=== PATIENT | female | born 1970 | race Caucasian/White ===

== ENCOUNTER 2017-02-10 08:07 | Day surgery (SDC) | payer OTHER, BC ==
[2017-01-25 10:12] VITALS: BMI 29.0
--- NOTE | 2017-01-25 10:46 | PAT Medication Instructions ---
Service Date Jan 25, 2017. Current Home Medication List Albuterol Hfa (Ventolin Hfa), 2-4 PUFFS INH Q6H PRN for SOB/Wheezing Albuterol Sulf (Albuterol Sulfate), 1 DOSE INH DAILY PRN for SOB/Wheezing Azelastine Hcl (Astelin Nasal [place]), 1-2 SPRAYS NA BID PRN for Nasal Congestion Baclofen (Lioresal), 10 MG PO TID PRN for BACK SPASMS Bupropion (Wellbutrin Sr), 150 MG PO QAM Calcium (Calcium), 1 TAB PO QPM Cholecalciferol (Vitamin D3), 2 TAB PO QAM Cyanocobalamin (Vitamin B-12), 1,000 MCG PO QAM Dextromethorphan-Guaifenesin (Mucinex Dm), 1 TAB PO Q12 PRN for Cough Fluticasone Propionate (Nasal) (Allergy Nasal [place] 24 Ho), 2 SPRAYS NA BID Montelukast Sod (Montelukast Sodium), 1 TAB PEG QPM Multivitamin (Multivitamin), 1 TAB PO QPM Oxycodone/Acetaminophen 5MG/325MG (Percocet 5MG/325MG), 1 TABLET PO Q12 PRN for Pain Propranolol (Inderal), 20 MG PO BID Ranitidine (Zantac), 1 TAB PO BID Saline (Saline Nasal [place]), 1 APPLN NA DAILY PRN for DR Sumatriptan Succinate (Sumatriptan Succinate), 1 TAB PO Q2H PRN for Migraine Tapentadol Hcl (Nucynta), 75 MG PO Q4-6HR PRN PRN Topiramate (Topiramate), 1 TAB PO BID Trazodone Hcl (Trazodone), 50 MG PO HS PRN for Sleep Venlafaxine Hcl (Venlafaxine Extended Rel), 37.5 MG PO Q2D Venlafaxine Hcl (Venlafaxine Extended Rel), 75 MG PO Q2D Medication Instructions For Your Scheduled Surgery - Continue as directed: Venlafaxine Hcl (Venlafaxine Extended Rel), 37.5 MG PO Q2D Venlafaxine Hcl (Venlafaxine Extended Rel), 75 MG PO Q2D - Hold the following medications the morning of surgery: Baclofen (Lioresal), 10 MG PO TID PRN for BACK SPASMS Cholecalciferol (Vitamin D3), 2 TAB PO QAM Cyanocobalamin (Vitamin B-12), 1,000 MCG PO QAM Dextromethorphan-Guaifenesin (Mucinex Dm), 1 TAB PO Q12 PRN for Cough - Take the following medications the morning of surgery with a sip of water: Topiramate (Topiramate), 1 TAB PO BID Sumatriptan Succinate (Sumatriptan Succinate), 1 TAB PO Q2H PRN for Migraine ( if needed) Saline (Saline Nasal [place]), 1 APPLN NA DAILY PRN for DR Propranolol (Inderal), 20 MG PO BID Ranitidine (Zantac), 1 TAB PO BID Oxycodone/Acetaminophen 5MG/325MG (Percocet 5MG/325MG), 1 TABLET PO Q12 PRN for Pain (okay to take up to 4 hours to surgery if needed) Tapentadol Hcl (Nucynta), 75 MG PO Q4-6HR PRN PRN(okay to take up to 4 hours to surgery if needed) Fluticasone Propionate (Nasal) (Allergy Nasal [place] 24 Ho), 2 SPRAYS NA BID Bupropion (Wellbutrin Sr), 150 MG PO QAM Albuterol Sulf (Albuterol Sulfate), 1 DOSE INH DAILY PRN for SOB/Wheezing (if needed) Azelastine Hcl (Astelin Nasal [place]), 1-2 SPRAYS NA BID PRN for Nasal Congestion (if needed) Albuterol Hfa (Ventolin Hfa), 2-4 PUFFS INH Q6H PRN for SOB/Wheezing (if needed) - Take the following medications as scheduled the night before surgery: Topiramate (Topiramate), 1 TAB PO BID Trazodone Hcl (Trazodone), 50 MG PO HS PRN for Sleep (if needed) Sumatriptan Succinate (Sumatriptan Succinate), 1 TAB PO Q2H PRN for Migraine ( if needed) Saline (Saline Nasal [place]), 1 APPLN NA DAILY PRN for DR (if needed) Propranolol (Inderal), 20 MG PO BID Ranitidine (Zantac), 1 TAB PO BID Oxycodone/Acetaminophen 5MG/325MG (Percocet 5MG/325MG), 1 TABLET PO Q12 PRN for Pain (if needed) Multivitamin (Multivitamin), 1 TAB PO QPM Montelukast Sod (Montelukast Sodium), 1 TAB PEG QPM Fluticasone Propionate (Nasal) (Allergy Nasal [place] 24 Ho), 2 SPRAYS NA BID Dextromethorphan-Guaifenesin (Mucinex Dm), 1 TAB PO Q12 PRN for Cough (if needed ) Calcium (Calcium), 1 TAB PO QPM Baclofen (Lioresal), 10 MG PO TID PRN for BACK SPASMS (if needed) Albuterol Sulf (Albuterol Sulfate), 1 DOSE INH DAILY PRN for SOB/Wheezing (if needed) Azelastine Hcl (Astelin Nasal [place]), 1-2 SPRAYS NA BID PRN for Nasal Congestion (if needed) Albuterol Hfa (Ventolin Hfa), 2-4 PUFFS INH Q6H PRN for SOB/Wheezing (if needed) Tapentadol Hcl (Nucynta), 75 MG PO Q4-6HR PRN PRN (if needed) If you have any questions please call us at [phone] or [phone] or [phone]
--- NOTE | 2017-01-25 11:19 | DIAGNOSTIC IMAGING REPORT ---
CHEST PREADMISSION(PA/LAT) CLINICAL HISTORY: Preoperative chest COMPARISON STUDY: 08/14/2013 FINDINGS: The cardiac and mediastinal contours are normal. There is no evidence of focal pulmonary consolidation. There is no evidence of failure. No pleural effusions are visualized.[ There are postsurgical changes within the cervical spine. IMPRESSION: No active disease in the chest. Electronically signed by: Juvencio Dixon M.D. 01/25/2017 11:18 AM Dictated Date/Time: 01/25/2017 11:17 AM
[2017-01-25 11:56] LABS: BASO % 0.8 %; BASO ABS # 0.06 K/uL (0-0.2); COMPLETE YES; EOS % 4.3 %; HEMATOCRIT 42.4 % (37-47); IG% 0.1 %; LYMPH % 24.8 %; LYMPH ABS # 1.89 K/uL (1.2-3.4); MEAN CELL VOLUME 93.2 fL (80-100); MEAN CORPUSCULAR HEMOGLOBIN 32.1 pg (25-34); MEAN CORPUSCULAR HGB CONC 34.4 g/dl (32-36); MEAN PLATELET VOLUME 10.4 fL (7.4-10.4); MONO % 12.5 %; NEUT % 57.5 %; PLATELET COUNT 308 K/uL (130-400); RED BLOOD COUNT 4.55 M/uL (4.2-5.4); WHITE BLOOD COUNT 7.61 K/uL (4.8-10.8)
[2017-01-25 12:06] LABS: URINE APPEARANCE CLOUDY (CLEAR); URINE COLOR DK YELLOW; URINE EPITHELIAL CELL AUTO >30 /lpf (0-5); URINE NITRITE NEG (NEG); URINE PH 6.5 (4.5-7.5); URINE SPECIFIC GRAVITY 1.025 (1.000-1.030); UROBILINOGEN NEG (NEG); ZZUR CULT IF INDIC CLEAN CATCH YES
[2017-01-25 12:29] LABS: BUN/CREATININE RATIO 9.5 (10-20); CALCIUM 8.5 mg/dl (8.5-10.1); CREATININE 1.09 mg/dl (0.60-1.20); POTASSIUM 4.2 mmol/L (3.5-5.1)
[2017-01-25 12:37] LABS: MANUAL MICROSCOPIC REQUIRED? NO; REVIEW REQ? YES; URINE BILIRUBIN NEG (NEG)
[~2017-02-10] VITALS: Ht 167.6 cm; Wt 82.7 kg
[~2017-02-10 08:07] MED LIST: ASTN; BACL10TA PO; BUPR-79 PO; CALC600T37 PO; CEFAZOLIN 2000MG IV PUSH 10 ML IV SCH; CHOL1000 PO; CYAN10005 PO; DEXT30TA7 PO; FLUT50SP45; IMT50 PO; LACTATED RINGER'S 1000ML 1,000 ML IV SCH; MULT-506 PO; OXYC-57 PO; PROP20TA67 PO; PRVIN5 INH; SALI1SPR3; SNG10 PO; TAPE75TA2 PO; TPM100 PO; TRAZ50TA35 PO; VENL37.593 PO; VENL75CA73 PO; VNTHFA/IN INH; ZNTT/150 PO
[2017-02-10 08:44] VITALS: BP 98/62; PULSE 63; TEMP 36.7; O2SAT 97; Ht 167.6 cm; Wt 82.7 kg
[2017-02-10] MEDS ORDERED: HYDROmorphone INJ 1 MG/ML SYR IV PRN ×3 (09:00→12:00)
[2017-02-10] MEDS ORDERED: ATROPINE SULFATE 0.1 MG/ML 5ML SYR IV PRN (09:00)
[2017-02-10] MEDS ORDERED: ONDANSETRON INJ 2 MG/ML 2 ML VIAL IV PRN (09:00)
[2017-02-10] MEDS ORDERED: EpHEDrine SULFATE INJ 50 MG/ML AMP IV PRN (09:00)
[2017-02-10] MEDS ORDERED: LABETALOL HCL IV 5 MG/ML 20ML IV PRN (09:00)
[2017-02-10] MEDS ORDERED: MEPERIDINE HCL 25 MG/ML CARP IV PRN (09:00)
--- NOTE | 2017-02-10 09:02 | History & Physical Bridge Note ---
H&P Re-Evaluation Bridge Note: I have examined the patient, reviewed the History & Physical and in the interval since the performance of the History & Physical I have noted the following changes of clinical significance: No changes noted
--- NOTE | 2017-02-10 09:03 | History and Physical ---
History & Physical Date Feb 10, 2017. Chief Complaint Left SI joint pain History of Present Illness The patient is a 46 year old female with complaints of left SI joint pain Additional History Hepatic Disease: No Endocrine Disorder: No Kidney Disease: No Hypertension: Yes Heart Disease: No Bleeding Tendencies: No Infectious Diseases: No Allergies Coded Allergies: CI Pigment Blue 63 (Verified Allergy, Unknown, WOBBLY, SHAKY, INSOMNIA, ) Duloxetine (Verified Allergy, Unknown, WOBBLY, SHAKY, INSOMNIA, 02/10/17) Gabapentin (Verified Allergy, Unknown, HALLUCINATIONS, 02/10/17) Home Medications Scheduled Bupropion (Wellbutrin Sr), 150 MG PO QAM Calcium (Calcium), 1 TAB PO QPM Cholecalciferol (Vitamin D3), 2 TAB PO QAM Cyanocobalamin (Vitamin B-12), 1,000 MCG PO QAM Fluticasone Propionate (Nasal) (Allergy Nasal [place] 24 Ho), 2 SPRAYS NA BID Montelukast Sod (Montelukast Sodium), 1 TAB PO QPM Multivitamin (Multivitamin), 1 TAB PO QPM Propranolol (Inderal), 20 MG PO BID Ranitidine (Zantac), 1 TAB PO BID Topiramate (Topiramate), 1 TAB PO BID Venlafaxine Hcl (Venlafaxine Extended Rel), 37.5 MG PO Q2D Scheduled PRN Albuterol Hfa (Ventolin Hfa), 2-4 PUFFS INH Q6H PRN for SOB/Wheezing Albuterol Sulf (Albuterol Sulfate), 1 DOSE INH DAILY PRN for SOB/Wheezing Azelastine Hcl (Astelin Nasal [place]), 1-2 SPRAYS NA BID PRN for Nasal Congestion Baclofen (Lioresal), 10 MG PO TID PRN for BACK SPASMS Dextromethorphan-Guaifenesin (Mucinex Dm), 1 TAB PO Q12 PRN for Cough Oxycodone/Acetaminophen 5MG/325MG (Percocet 5MG/325MG), 1 TABLET PO Q12 PRN for Pain Saline (Saline Nasal [place]), 1 APPLN NA DAILY PRN for DR Sumatriptan Succinate (Sumatriptan Succinate), 1 TAB PO Q2H PRN for Migraine Tapentadol Hcl (Nucynta), 75 MG PO Q4-6HR PRN PRN Trazodone Hcl (Trazodone), 50 MG PO HS PRN for Sleep Physical Examination Skin: warm/dry, no rash Eyes: normal inspection, EOMI, sclerae normal ENT: normal ENT inspection, pharynx normal Head: normocephalic, atraumatic Neck: supple, no adenopathy, trachea midline Respiratory/Chest: lungs clear, normal breath sounds, no respiratory distress Cardiovascular: regular rate, rhythm, no edema, no murmur Abdomen / GI: normal bowel sounds, non tender Back: normal inspection Extremities: normal inspection, normal range of motion Neurologic/Psych: no motor/sensory deficits, alert, normal reflexes, oriented x 3 Diagnosis Sacroiliitis Plan of Treatment Left SI joint fusion
[2017-02-10] MEDS ORDERED: FENTANYL CITRATE INJ 50 MCG/1 ML 2 ML VIAL ONE ×2 (09:05→10:26)
[2017-02-10] MEDS ORDERED: MIDAZOLAM HCL 1 MG/ML 2ML VIAL ONE (09:05)
[2017-02-10] MEDS ORDERED: BACITRACIN 50000 UNIT VIAL ONE (09:29)
[2017-02-10] MEDS ORDERED: BUPIVACAINE/EPINEPHRINE 0.5% MPF 1:200,000 30 ML VIAL ONE (09:29)
[2017-02-10] MEDS ORDERED: HYDROmorphone INJ 2 MG/ML SYR/VIAL ONE ×2 (10:27→10:56)
[2017-02-10] MEDS ORDERED: PROPOFOL IV EMULSION 10 MG/ML 20 ML VIAL IV ONE (10:44)
[2017-02-10] MEDS ORDERED: ONDANSETRON INJ 2 MG/ML 2 ML VIAL ONE ×2 (10:44→11:50)
[2017-02-10] MEDS ORDERED: LIDOCAINE HCL 2% 2 ML VIAL (20MG/ML) ONE (10:44)
[2017-02-10] MEDS ORDERED: DEXAMETHASONE SOD INJ 4 MG/ML VIAL ONE (10:44)
[2017-02-10] MEDS ORDERED: ROCURONIUM BROMIDE 10 MG/ML 5 ML VIAL IV ONE (10:44)
[2017-02-10] MEDS ORDERED: OXYC-57 PO (10:50)
--- NOTE | 2017-02-10 10:52 | Discharge Instructions ---
Discharge Instructions Date of Service Feb 10, 2017. Admission Reason for Admission: Si Joint Dysfunction Discharge Discharge Diagnosis / Problem: left sacroiliitis Discharge Goals Goal(s): Decrease discomfort Activity Recommendations Activity Limitations: as noted below Lifting Limitations: no more than 10 pounds Shower/Bathe: may shower/bathe in 3 days Weightbearing Status: Left toe touch Toe-touch weight-bearing left lower extremity until follow-up in the office in 2 weeks. . Current Hospital Diet Patient's current hospital diet: Discharge Diet Recommended Diet: Regular Diet Procedures Procedures Performed: Left Sacroiliac Joint Fusion Pending Studies Studies pending at discharge: no Medical Emergencies . Who to Call and When: Medical Emergencies: If at any time you feel your situation is an emergency, please call 911 immediately. . Non-Emergent Contact Non-Emergency issues call your: Primary Care Provider . "Provider Documentation" section prepared by Issa Alanis. . VTE Core Measure Inpt VTE Proph given/why not?: Estelita oCoper, SCD's
--- NOTE | 2017-02-10 10:59 | DIAGNOSTIC IMAGING REPORT ---
SACRUM CLINICAL HISTORY: LT SACROILIAC JOINT FUSION TECHNIQUE: Image intensifier COMPARISON STUDY: FINDINGS: Image intensifier was used for sacroiliac fusion-type procedure IMPRESSION: Image intensifier was used for sacroiliac fusion-type procedure The above report was generated using voice recognition software. It may contain grammatical, syntax or spelling errors. Electronically signed by: Haim Bergeron M.D. 02/10/2017 10:58 AM Dictated Date/Time: 02/10/2017 10:57 AM
[2017-02-10] MEDS ORDERED: ACETAMINOPHEN 325 MG TAB PO PRN (11:00)
[2017-02-10] MEDS ORDERED: KETOROLAC TROMETHAMINE 30 MG/ML VIAL IV. PRN (11:00)
[2017-02-10] MEDS ORDERED: OXYCODONE HCL IR 5 MG TAB (IMMEDIATE RELEASE) PO PRN (11:00)
--- NOTE | 2017-02-10 11:31 | [facility] Operative Report ---
Operative Report Operative Date Feb 10, 2017. Pre-Operative Diagnosis Sacroiliitis Post-Operative Diagnosis same as pre-operative Procedure(s) Performed Left Sacroiliac Joint Fusion Surgeon Dr. Issa Alanis Etl Application Developer Surgeon(s) TOR Brand Estimated Blood Loss 50ml Findings None Specimens none per surgeon Description of Procedure Patient was met with preoperatively case discussed all questions addressed. After informed consent was obtained she was taken to the operative suite underwent intubation placed in a prone position on the Brock table with chest pads and hip bolsters. The left upper buttock was prepped and draped in normal sterile fashion. With the assistance of fluoroscopy we identified the left SI joint in AP lateral planes. A proximally 3 cm incision was made over the left upper buttock along the sacral slope. I then placed a guidewire across to the proximal portion of the left SI joint. We verified position appropriate position in all planes. We then drilled over the guidewire to a 10 mm screw. A 45 mm RETANA-coated slotted screw filled with DBM and locally harvested morcellized autograft was then placed. Again we are very happy with our positioning across SI joint and placed a second screw distally in the same fashion. This screw was 40 mm in length again RETANA-coated and filled with bone graft. A third screw was placed distally 35 mm in length. Again RETANA-coated and filled with bone graft. Again all 3 screws were verified AP inlet outlet and lateral views. Incision was then copiously irrigated and closed the subcutaneous Vicryl and 4 Monocryl for final skin closure. A sterile dressing was placed. Patient we can take PACU stable condition. Please note Jaspreet núñez was present at the entire procedure involved in patient positioning complex portions of the surgery and final skin closure. I attest to the content of the Intraoperative Record and any orders documented therein. Any exceptions are noted below.
[2017-02-10] MEDS: FENTANYL CITRATE INJ 50 MCG/1 ML 2 ML VIAL IV PRN ×4 (11:38→12:01)
[2017-02-10] MEDS ORDERED: NEOSTIGMINE METHYLSULFATE 1 MG/ML 10ML VIAL ONE (11:50)
[2017-02-10] MEDS ORDERED: EpHEDrine SULFATE 50MG/5ML SYR ONE (11:50)
[2017-02-10] MEDS ORDERED: GLYCOPYRROLATE INJ 0.2 MG/ML VIAL ONE (11:50)
[2017-02-10] MEDS ORDERED: HYDROmorphone INJ 2 MG/ML SYR/VIAL IV PRN (12:00)
--- NOTE | 2017-02-10 12:27 | Anesthesiology Progress Note ---
Anesthesia Post Op Note Date & Time Feb 10, 2017 at 12:27 Vital Signs Pain Intensity: 5 Vital Signs Past 12 Hours Date Time Temp Pulse Resp B/P (MAP) Pulse Ox O2 Delivery O2 Flow Rate FiO2 02/10/17 12:20 72 16 111/48 97 Room Air 02/10/17 12:10 36.6 70 16 108/51 98 Room Air 02/10/17 12:00 66 12 99/59 (80) 95 Nasal Cannula 2 02/10/17 11:50 70 14 103/55 100 Nasal Cannula 2 02/10/17 11:40 69 16 108/52 100 Nasal Cannula 2 02/10/17 11:30 73 14 101/68 100 Oxymask 10 02/10/17 11:20 73 17 123/51 100 Oxymask 10 02/10/17 11:12 36.0 78 16 91/49 (58) 100 Oxymask 10 02/10/17 08:44 36.7 63 18 98/62 97 Room Air Notes Mental Status: alert / awake / arousable, participated in evaluation Pt Amnestic to Procedure: Yes Nausea / Vomiting: adequately controlled Pain: adequately controlled Airway Patency, RR, SpO2: stable & adequate BP & HR: stable & adequate Hydration State: stable & adequate Anesthetic Complications: no major complications apparent
[2017-02-10 13:25] VITALS: BP 90/48; PULSE 76; TEMP 36.8; O2SAT 98
== END 2017-02-10 13:35 | disposition home or self-care (01) ==
LOC: C.ACU 08:07
PROVIDERS: ATTEND Orthopaedic Surgery Orthopaedic Surgery of the Spine
DX: M46.1 Sacroiliitis, not elsewhere classified (principal); J45.909 Unspecified asthma, uncomplicated; Z79.899 Other long term (current) drug therapy; F41.9 Anxiety disorder, unspecified; F32.9 Major depressive disorder, single episode, unspecified; K21.9 Gastro-esophageal reflux disease without esophagitis

== ENCOUNTER 2017-03-12 15:48 | Emergency (ER) | payer OTHER, BC ==
[~2017-03-12] VITALS: Ht 167.6 cm; Wt 85.7 kg
[~2017-03-12 15:48] MED LIST changes: -CEFAZOLIN 2000MG IV PUSH 10 ML IV SCH; -LACTATED RINGER'S 1000ML 1,000 ML IV SCH; +RANI150T85 PO; +SALI-3; -SALI1SPR3; -VENL75CA73 PO; -ZNTT/150 PO
[2017-03-12 15:55] VITALS: Ht 167.6 cm; Wt 85.7 kg
[2017-03-12 16:15] VITALS: BP 129/67; PULSE 62; TEMP 36.7; O2SAT 100
[2017-03-12] MEDS ORDERED: DEXAMETHASONE SOD INJ 4 MG/ML VIAL IM STA (16:20)
[2017-03-12] MEDS ORDERED: PRED20TA PO (16:23)
[2017-03-12] MEDS ORDERED: ABL/5 PO (16:31)
--- NOTE | 2017-03-12 16:46 | EMERGENCY ROOM VISIT NOTE ---
History Report prepared by Bella: Mile Vincent Under the Supervision of: Dr. Jaden Sawant M.D. First contact with patient: 16:00 Chief Complaint: NECK PAIN Stated Complaint: NECK PAIN History of Present Illness The patient is a 46 year old female who presents to the Emergency Room with complaints of intermittent neck pain beginning 6-8 months ago. The patient states that her pain became constant two months ago. Two months ago, the patient started to have left arm numbness which starts at her forearm and radiates to her hand. She states she can still feel her arm but it feels like she has been to needles. The patient states her pain is usually scattered on both sides of her neck. Presently, the patient's neck pain is concentrated on the right side of her neck. The patient has a history of a fusion of her C4 and C5 and C5-C6 spine which was done by Dr. Alanis-[facility]. The patient also had an SI joint fusion on February 10. The patient is supposed to have an MRI on Monday, three days from today, at [facility]. She denies any fever, recent falls or injuries, chest pain, or difficulty breathing. The patient currently is taking baclofen and Percocet for her pain. The patient reports that her Percocet and baclofen have not been "taking the edge off" over the past three nights. She notes decreased sleep over the past two nights because of her increased pain. The patient reports that steroids have helped her neck pain in the past. Source of History: patient Onset: 6-8 months ago Position: neck Symptom Intensity: severe Quality: sharp Timing: intermittent Associated Symptoms: + neck pain, + numbness, No fevers, No chest pain, No SOB Review of Systems I did review 10 or more systems which are negative unless otherwise indicated on the chart or HPI. Past Medical & Surgical Surgical Problems: (1) History of spinal fusion Family History Patient reports no known family medical history. Social History Smoking Status: Former Smoker Marital Status: Housing Status: lives with significant other Current/Historical Medications Scheduled Aripiprazole (Abilify), 5 MG PO DAILY Bupropion (Wellbutrin Sr), 150 MG PO QAM Calcium (Calcium), 1 TAB PO QPM Cholecalciferol (Vitamin D3), 2 TAB PO QAM Cyanocobalamin (Vitamin B-12), 1,000 MCG PO QAM Fluticasone Propionate (Nasal) (Allergy Nasal [place] 24 Ho), 2 SPRAYS NA BID Montelukast Sod (Montelukast Sodium), 1 TAB PO QPM Multivitamin (Multivitamin), 1 TAB PO QPM Prednisone (Prednisone), 0 PO DAILY Propranolol (Inderal), 20 MG PO BID Ranitidine (Zantac), 1 TAB PO BID Topiramate (Topiramate), 1 TAB PO BID Scheduled PRN Albuterol Hfa (Ventolin Hfa), 2-4 PUFFS INH Q6H PRN for SOB/Wheezing Albuterol Sulf (Albuterol Sulfate), 1 DOSE INH DAILY PRN for SOB/Wheezing Azelastine Hcl (Astelin Nasal [place]), 1-2 SPRAYS NA BID PRN for Nasal Congestion Baclofen (Lioresal), 10 MG PO TID PRN for BACK SPASMS Dextromethorphan-Guaifenesin (Mucinex Dm), 1 TAB PO Q12 PRN for Cough Oxycodone/Acetaminophen 5MG/325MG (Percocet 5MG/325MG), 1 TABLET PO Q12 PRN for Pain Saline (Saline Nasal [place]), 1 APPLN NA DAILY PRN for DR Sumatriptan Succinate (Sumatriptan Succinate), 1 TAB PO Q2H PRN for Migraine Tapentadol Hcl (Nucynta), 75 MG PO Q4-6HR PRN PRN Trazodone Hcl (Trazodone), 50 MG PO HS PRN for Sleep Allergies Coded Allergies: CI Pigment Blue 63 (Verified Allergy, Unknown, WOBBLY, SHAKY, INSOMNIA, ) Duloxetine (Verified Allergy, Unknown, WOBBLY, SHAKY, INSOMNIA, 03/12/17) Gabapentin (Verified Allergy, Unknown, HALLUCINATIONS, 03/12/17) Physical Exam Vital Signs Date Time Temp Pulse Resp B/P (MAP) Pulse Ox O2 Delivery O2 Flow Rate FiO2 03/12/17 16:15 36.7 62 17 129/67 100 03/12/17 15:55 36.7 62 17 129/67 100 Room Air Physical Exam Constitutional: Vital signs reviewed. Eyes: Pupils are equal round reactive to light. Conjunctiva are noninjected. ENT: Pharynx is clear without erythema or exudate. Mucous membranes are moist. Neck supple without meningeal signs. No midline tenderness to the cervical spine. Respiratory: Clear to auscultation bilaterally. Breath sounds are equal bilaterally. Cardiovascular: Regular rate and rhythm. No rubs or gallops. GI: Soft, nondistended and nontender. Bowel sounds are present. Musculoskeletal: No peripheral edema. Integumentary: No cyanosis. Neurological: The patient is awake and alert. No focal deficits. Normal strength and sensation throughout both upper extremities throughout all major nerve distributions. Psychiatric: Normal affect. Medical Decision & Procedures Medications Administered Medications (Trade) Dose Ordered Sig/Marlin Route Start Time Stop Time Status Last Admin Dose Admin Dexamethasone Sodium Phosphate (Decadron Inj) 10 mg NOW STAT IM 03/12/17 16:20 03/12/17 16:22 DC 03/12/17 16:41 10 MG ED Course 1602: The patient was evaluated in room C4. A complete history and physical exam was performed. 1620: Ordered Decadron Inj 10 mg IM. 1644: Upon reevaluation, the patient appeared to have improvement of her symptoms. I discussed tonight's findings with her. She verbalized agreement of the treatment plan. The patient was discharged home. Medical Decision This is a 46-year-old female who presents with neck pain with left arm numbness. Differential diagnosis includes cervical disc disease, radiculopathy , disc herniation, neuropathy. I did perform a limited focused review of portions of the patient's old chart on the electronic medical record. The patient has had no recent pertinent visits to this hospital. I did evaluate the patient as noted above. The patient is presenting with neck pain with radicular symptoms going down her left arm. She states it has been going on for 6-8 months. She is followed by Dr. Alanis and has had prior fusions of her cervical spine in the past. She is also seen her neurologist and discussed her symptoms with him as well. She is scheduled for an MRI of her neck in 3 days. On my examination she is neurologically intact without any focal deficits to suggest a spinal cord injury. Her symptoms are consistent with cervical disc disease with radiculopathy. Currently there is no indication for an emergent MRI. She did state that she has previously responded to steroids and so I did treat her with Decadron 10 mg IM. She was also given a prescription for taper of prednisone which she states has helped her in the past. She will keep her appointment with her spinal surgeon and the MRI. She will continue her Nucynta and Percocet for any breakthrough pain. She was discharged in good condition. Medication Reconcilliation Current Medication List: was personally reviewed by me Blood Pressure Screening Patient's blood pressure: Elevated blood pressure Blood pressure disposition: Elevated BP felt to be situational Impression Primary Impression: Cervical radiculopathy Scribe Attestation The scribe's documentation has been prepared under my direct and personally reviewed by me in its entirety. I confirm that the note above accurately reflects all work, treatment, procedures, and medical decision making performed by me. Departure Information Dispostion Home / Self-Care Prescriptions Prednisone (Prednisone) 20 Mg Tab 0 PO DAILY, #18 TAB 3 DAILY FOR 3 DAYS, THEN 2 DAILY FOR 3 DAYS, THEN 1 DAILY FOR 3 DAYS. Prov: Jaden Sawant M.D. 03/12/17 Referrals Celia Galo PA-C (PCP) Forms HOME CARE DOCUMENTATION FORM, IMPORTANT VISIT INFORMATION, WORK / SCHOOL INSTRUCTIONS Patient Instructions My [facility] Additional Instructions You have been examined and treated today on an emergency basis only. This is not a substitute for, or an effort to provide, complete comprehensive medical care. It is impossible to recognize and treat all injuries or illnesses in a single emergency department visit. It is therefore important that you follow up closely with your physician. Call as soon as possible for an appointment. Return for worsening symptoms or if you develop fever, vomiting, chest pain, loss of control of your bowel or bladder, loss of feeling or weakness to your arms or legs, numbness to your private area, difficulty urinating, or any other concerning symptoms.
[2017-06-07] MEDS ORDERED: RISP1TAB18 PO (15:42)
[2017-06-07] MEDS ORDERED: OXYC-57 PO (16:08)
[2017-06-07] MEDS ORDERED: TAPE75TA2 PO (16:08)
[2017-07-05] MEDS ORDERED: RXC5 PO (11:14)
== END 2017-03-12 16:42 | disposition home or self-care (01) ==
LOC: C.EDB 15:50 → C.EDC 16:42
DX: M54.12 Radiculopathy, cervical region (principal); Z87.891 Personal history of nicotine dependence; Z98.1 Arthrodesis status

== ENCOUNTER → 2017-06-09 | Outpatient (CLI) | payer OTHER, BC ==
[~2017-06-09] MED LIST changes: -ASTN; +RISP1TAB18 PO; -SALI-3; +SALI1SPR3; -TAPE75TA2 PO; -VENL37.593 PO
[2017-06-09 15:19] LABS: BASO % 0.5 %; BASO ABS # 0.03 K/uL (0-0.2); EOS ABS # 0.26 K/uL (0-0.5); HEMATOCRIT 40.4 % (37-47); HEMOGLOBIN 13.8 g/dL (12.0-16.0); LYMPH ABS # 1.67 K/uL (1.2-3.4); MEAN CELL VOLUME 93.3 fL (80-100); MEAN CORPUSCULAR HEMOGLOBIN 31.9 pg (25-34); MEAN CORPUSCULAR HGB CONC 34.2 g/dl (32-36); MEAN PLATELET VOLUME 10.5 fL (7.4-10.4); MONO % 11.5 %; MONO ABS # 0.74 K/uL (0.11-0.59); NEUT ABS # 3.73 K/uL (1.4-6.5); PLATELET COUNT 314 K/uL (130-400); RED CELL DISTRIBUTION WIDTH CV 12.5 % (11.5-14.5); RED CELL DISTRIBUTION WIDTH SD 42.4 fL (36.4-46.3); WHITE BLOOD COUNT 6.43 K/uL (4.8-10.8)
[2017-06-09 15:36] LABS: BLOOD UREA NITROGEN 13 mg/dl (7-18); CALCIUM 8.6 mg/dl (8.5-10.1); CARBON DIOXIDE 25 mmol/L (21-32); GLUCOSE 80 mg/dl (70-99); POTASSIUM 3.9 mmol/L (3.5-5.1); SODIUM 140 mmol/L (136-145)
== END | disposition home or self-care (01) ==
LOC: C.LAB 12:50
PROVIDERS: ATTEND Orthopaedic Surgery Orthopaedic Surgery of the Spine
DX: Z01.812 Encounter for preprocedural laboratory examination (principal)

== ENCOUNTER 2017-07-05 05:41 | Inpatient (IN) | payer OTHER, BC ==
[2017-07-05] VITALS (15 sets, daily range): BP systolic 99–113; BP diastolic 35–74; PULSE 53–74; TEMP 36.4–36.6; O2SAT 93–100; Ht 167.6 cm; Wt 30.6 kg
[~2017-07-05] VITALS: Ht 167.6 cm; Wt 30.6 kg
[~2017-07-05 05:41] MED LIST changes: +SALI-3; -SALI1SPR3
[2017-07-05] MEDS ORDERED: LACTATED RINGER'S 1000ML 1,000 ML IV SCH (06:00)
[2017-07-05] MEDS ORDERED: CEFAZOLIN 2000MG IV PUSH 15 ML IV SCH (06:00)
[2017-07-05] MEDS ORDERED: ACETAMINOPHEN 500 MG TAB PO SCH (06:00)
[2017-07-05] MEDS ORDERED: CeleBREX 200 MG CAP PO SCH (06:00)
[2017-07-05] MEDS ORDERED: TAPE50TA5 PO (06:04)
[2017-07-05] MEDS ORDERED: FENTANYL CITRATE INJ 50 MCG/1 ML 2 ML VIAL ONE ×2 (06:45→08:01)
[2017-07-05] MEDS ORDERED: MIDAZOLAM HCL 1 MG/ML 2ML VIAL ONE (06:45)
[2017-07-05] MEDS ORDERED: BACITRACIN 50000 UNIT VIAL ONE (07:27)
--- NOTE | 2017-07-05 07:32 | History and Physical ---
History & Physical Date Jul 05, 2017. Chief Complaint Neck and arm pain History of Present Illness The patient is a 47 year old female with complaints of neck and arm pain Past Medical/Surgical History Surgical Problems: (1) History of spinal fusion Additional History Hepatic Disease: No Endocrine Disorder: No Kidney Disease: No Hypertension: No Heart Disease: Yes Bleeding Tendencies: No Infectious Diseases: No Allergies Coded Allergies: CI Pigment Blue 63 (Verified Adverse Reaction, Unknown, WOBBLY, SHAKY, INSOMNIA, 07/05/17) Duloxetine (Verified Adverse Reaction, Unknown, WOBBLY, SHAKY, INSOMNIA, ) Gabapentin (Verified Adverse Reaction, Unknown, HALLUCINATIONS, 07/05/17) Home Medications Scheduled Bupropion (Wellbutrin Sr), 150 MG PO QAM Calcium (Calcium), 1 TAB PO QPM Cholecalciferol (Vitamin D3), 2 TAB PO QAM Cyanocobalamin (Vitamin B-12), 1,000 MCG PO QAM Fluticasone Propionate (Nasal) (Allergy Nasal [place] 24 Ho), 2 SPRAYS NA BID Montelukast Sod (Montelukast Sodium), 1 TAB PO QPM Multivitamin (Multivitamin), 1 TAB PO QPM Propranolol (Inderal), 20 MG PO BID Ranitidine (Zantac), 1 TAB PO BID Risperidone (Risperdal), 1 MG PO HS Tapentadol Hcl (Nucynta), 50 MG PO DIRECTED Topiramate (Topiramate), 1 TAB PO BID Scheduled PRN Albuterol Hfa (Ventolin Hfa), 2-4 PUFFS INH Q6H PRN for SOB/Wheezing Albuterol Sulf (Albuterol Sulfate), 1 DOSE INH DAILY PRN for SOB/Wheezing Baclofen (Lioresal), 10 MG PO TID PRN for BACK SPASMS Dextromethorphan-Guaifenesin (Mucinex Dm), 1 TAB PO Q12 PRN for Cough Oxycodone/Acetaminophen 5MG/325MG (Percocet 5MG/325MG), 1 TABLETS PO Q12H PRN for N Saline (Saline Nasal [place]), 1 APPLN NA DAILY PRN for DR Sumatriptan Succinate (Sumatriptan Succinate), 1 TAB PO Q2H PRN for Migraine Trazodone Hcl (Trazodone), 50 MG PO HS PRN for Sleep Physical Examination Skin: warm/dry, no rash Eyes: normal inspection, EOMI, sclerae normal ENT: normal ENT inspection, pharynx normal Head: normocephalic, atraumatic Neck: supple, no adenopathy, trachea midline Respiratory/Chest: lungs clear, normal breath sounds, no respiratory distress Cardiovascular: regular rate, rhythm, no edema, no murmur Abdomen / GI: normal bowel sounds, non tender Back: normal inspection Extremities: normal inspection, normal range of motion Neurologic/Psych: no motor/sensory deficits, alert, normal reflexes, oriented x 3 Diagnosis Cervical spinal stenosis Plan of Treatment ACDF C3-4 C4-5
[2017-07-05] MEDS ORDERED: HYDROmorphone INJ 2 MG/ML SYR/VIAL ONE (08:01)
[2017-07-05] MEDS ORDERED: FLOSEAL HEMOSTATIC MATRIX 10ML TOP ONE (08:47)
[2017-07-05] MEDS ORDERED: DEXAMETHASONE SOD INJ 4 MG/ML VIAL ONE (09:05)
[2017-07-05] MEDS ORDERED: NEOSTIGMINE METHYLSULFATE 1 MG/ML 10ML VIAL ONE (09:05)
[2017-07-05] MEDS ORDERED: PROPOFOL IV EMULSION 10 MG/ML 20 ML VIAL IV ONE (09:05)
[2017-07-05] MEDS ORDERED: EpHEDrine SULFATE 50MG/5ML SYR ONE (09:05)
[2017-07-05] MEDS ORDERED: ONDANSETRON INJ 2 MG/ML 2 ML VIAL ONE (09:05)
[2017-07-05] MEDS ORDERED: LIDOCAINE HCL 2% 2 ML VIAL (20MG/ML) ONE (09:05)
[2017-07-05] MEDS ORDERED: GLYCOPYRROLATE INJ 0.2 MG/ML VIAL ONE (09:05)
--- NOTE | 2017-07-05 09:08 | [facility] Operative Report ---
Operative Report Operative Date Jul 05, 2017. Pre-Operative Diagnosis Cervical spinal stenosis Post-Operative Diagnosis Cervical spinal stenosis Procedure(s) Performed 1. Anterior cervical discectomy bilateral foraminotomies C3-4 C4-5. #2 anterior cervical arthrodesis C3-4 C4-5. #3 placement of cortical allograft filled with DBM 7 mm in height at C3-4 and 8 mm at C4-5. #4 application of mckinney plate and screws C3C5. Surgeon Dr. Priscila Alanis Labor Relations Consultant Surgeon(s) Catrachito Whitley PA-C Estimated Blood Loss 20mL Findings Cervical stenosis Specimens none per surgeon Anesthesia Type General Description of Procedure Patient was met with preoperatively case discussed all questions addressed. After informed consent obtained patient was taken to the operative suite underwent intubation and placed in a supine position on the Brock table to head [place] head of loss prevention. All bony prominences well-padded eyes inspected to ensure no external pressure placed upon the. This point the anterior cervical spine was prepped and draped in normal sterile fashion. The assistance of fluoroscopy identified the C4 vertebral body and a transverse incision was placed along the right anterior aspect of the cervical spine overlying this region. Sharp dissection with the assistance of bipolar electrocautery was performed down to and exposing the anterior cervical spine from C3-C5. A self retaining retractors placed. Then performed a complete discectomy of C4-5 out to the uncovertebral joints bilaterally. [place] distracting pins were utilized to assist in visualization. I removed all posterior annular fibers posterior longitudinal ligament bilateral foraminotomies performed. Endplates burred to subcortical bleeding bone and an 8 mm cortical allograft filled with DBM tapped in position. Distracting apparatus was removed and I proceeded C3-4. Again complete discectomy performed up to the uncovertebral joints bilaterally. This included removal of all posterior annular fibers longitudinal ligament and all discal fragments. Bilateral foraminotomies performed. Endplates burred to subcortical bleeding bone. A 7 mm cortical allograft filled with DBM was then tapped in position. Distracting apparatus was removed and a mckinney plate and screws applied the assistance of fluoroscopy. Incision was then copiously irrigated explored to ensure there is no damage to surrounding structures or remaining bleeding and a 10 round ANDREW drain inserted. It was then closed with 2 Vicryl in the fascia 4 Monocryl for fashion closure Steri-Strips sterile dressings placed. Patient will continue PACU stable condition. Please note Sharon Whatley was present at the entire procedure involved in patient positioning complex portions of the surgery and final skin closure. I attest to the content of the Intraoperative Record and any orders documented therein. Any exceptions are noted below.
[2017-07-05] MEDS ORDERED: NALOXONE HCL 0.4 MG/1 ML VIAL/CARP IV PRN (09:15)
[2017-07-05] MEDS ORDERED: PHENYLEPHRINE 100MCG/ML 5ML SYR IV PRN (09:15)
[2017-07-05] MEDS ORDERED: SODIUM CHLORIDE 0.65% NA SOLN 45 ML (OCEAN) PRN (09:15)
[2017-07-05] MEDS ORDERED: BACLOFEN 10 MG TAB PO PRN (09:15)
[2017-07-05] MEDS ORDERED: TRAZODONE HCL 50 MG TAB PO PRN (09:15)
[2017-07-05] MEDS ORDERED: DO NOT ADMINISTER FLU VACCINE PRN (09:15)
[2017-07-05] MEDS ORDERED: DO NOT ADMINISTER PNEUMOCOCCAL VACCINE PRN (09:15)
[2017-07-05] MEDS ORDERED: ALBUTEROL HFA 8 GM INHALER INH PRN (09:15)
[2017-07-05] MEDS ORDERED: DEXAMETHASONE INJ 8 MG in SYRINGE 0 ML IV PRN (09:15)
[2017-07-05] MEDS ORDERED: ATROPINE SULFATE 0.1 MG/ML 5ML SYR IV PRN (09:15)
[2017-07-05] MEDS ORDERED: ONDANSETRON INJ 2 MG/ML 2 ML VIAL IV PRN ×2 (09:15)
[2017-07-05] MEDS ORDERED: LORAZEPAM 0.5 MG TAB PO PRN (09:15)
[2017-07-05] MEDS ORDERED: DiphenhydrAMINE HCL 50 MG/ML VIAL IV PRN (09:15)
[2017-07-05] MEDS ORDERED: ACETAMINOPHEN IV 100 ML IV PRN (09:15)
[2017-07-05] MEDS ORDERED: LORAZEPAM INJ 0.5 MG in SYRINGE 0.75 ML IV PRN (09:15)
[2017-07-05] MEDS ORDERED: RACEPINEPHRINE 2.25% NEBU SOLN 0.5 ML VIAL INH PRN (09:15)
[2017-07-05] MEDS ORDERED: SUMATRIPTAN SUCCINATE 50 MG TAB PO PRN (09:15)
[2017-07-05] MEDS ORDERED: ALBUTEROL 0.5% NEB SOLN 2.5 MG/0.5 ML VIAL INH PRN (09:15)
[2017-07-05] MEDS ORDERED: MAGNESIUM HYDROXIDE SUSP 30 ML UDC PO PRN (09:15)
[2017-07-05] MEDS ORDERED: EpHEDrine SULFATE INJ 50 MG/ML AMP IV PRN (09:15)
--- NOTE | 2017-07-05 09:18 | DIAGNOSTIC IMAGING REPORT ---
CERVICAL 2 OR 3 VIEWS CLINICAL HISTORY: ACDF C3-5 postoperative TECHNIQUE: Image intensifier COMPARISON STUDY: None FINDINGS: Image intensifier was used for intraoperative planning for an anterior cervical fusion. Images demonstrate an anterior cervical fusion from C3 through C5. Disc spaces are present at both levels. There is also an anterior fusion C6-C7. Alignment is anatomic. IMPRESSION: Anterior fusion as described. Anatomic alignment. The above report was generated using voice recognition software. It may contain grammatical, syntax or spelling errors. Electronically signed by: Haim Bergeron M.D. 07/05/2017 9:16 AM Dictated Date/Time: 07/05/2017 9:15 AM
[2017-07-05] MEDS ORDERED: HYDROmorphone INJ 0.5 MG/0.5 ML SYR IV PRN (09:30)
[2017-07-05] MEDS: HYDROmorphone INJ 2 MG/ML SYR/VIAL IV PRN ×6 (09:31→10:04)
--- NOTE | 2017-07-05 10:36 | Anesthesiology Progress Note ---
Anesthesia Post Op Note Date & Time Jul 05, 2017 at 10:36 Vital Signs Pain Intensity: 4 Vital Signs Past 12 Hours Date Time Temp Pulse Resp B/P (MAP) Pulse Ox O2 Delivery O2 Flow Rate FiO2 07/05/17 10:20 52 14 103/59 99 Nasal Cannula 2 07/05/17 10:12 36.1 99 Nasal Cannula 2 07/05/17 10:02 52 13 99 07/05/17 10:02 51 13 07/05/17 10:01 100/55 07/05/17 09:57 61 13 100 07/05/17 09:57 61 13 07/05/17 09:56 110/55 07/05/17 09:52 59 16 100 07/05/17 09:52 59 16 07/05/17 09:51 107/68 07/05/17 09:48 55 16 100 07/05/17 09:48 55 16 07/05/17 09:46 126/48 07/05/17 09:43 56 16 100 07/05/17 09:43 55 16 07/05/17 09:42 57 13 07/05/17 09:42 56 13 100 07/05/17 09:41 121/63 07/05/17 09:37 56 13 100 07/05/17 09:37 56 13 07/05/17 09:36 111/63 07/05/17 09:32 56 11 07/05/17 09:32 56 11 100 07/05/17 09:31 117/72 07/05/17 09:27 63 14 100 07/05/17 09:27 62 14 07/05/17 09:26 104/67 07/05/17 09:22 59 12 100 07/05/17 09:22 59 12 07/05/17 09:21 111/67 07/05/17 09:17 65 16 111/58 98 07/05/17 09:17 66 16 07/05/17 09:17 36.3 61 14 111/58 97 Oxymask 10 07/05/17 06:17 36.4 53 18 99/35 100 Room Air Notes Mental Status: alert / awake / arousable, participated in evaluation Pt Amnestic to Procedure: Yes Nausea / Vomiting: adequately controlled Pain: adequately controlled Airway Patency, RR, SpO2: stable & adequate BP & HR: stable & adequate Hydration State: stable & adequate Anesthetic Complications: no major complications apparent
[2017-07-05] MEDS: SODIUM CHLORIDE 0.9% 1000ML 1,000 ML IV SCH ×2 (11:00→21:39)
[2017-07-05] MEDS ORDERED: SCOPOLAMINE 1.5 MG TDSY TD SCH (11:00)
[2017-07-05] MEDS ORDERED: RXC5 PO (11:14)
--- NOTE | 2017-07-05 11:14 | Discharge Instructions ---
Discharge Instructions Date of Service Jul 05, 2017. Admission Reason for Admission: Cervical Spinal Stenosis Discharge Discharge Diagnosis / Problem: cervical stenosis Discharge Goals Goal(s): Improve function Activity Recommendations Activity Limitations: per Instructions/Follow-up section . Instructions / Follow-Up Instructions / Follow-Up ACTIVITY RECOMMENDATIONS: SELF CARE INSTRUCTIONS AFTER CERVICAL FUSIONS 1. No smoking. Smoking drastically decreases the chance of a solid fusion. 2. No bending, lifting more than 5 pounds, or twisting (roll like a log when turning in bed). 3. You may shower 3 days after surgery. Thoroughly dry wound. Do not soak in the tub. 4. Cervical collar: Must be worn at all times including sleeping. You may remove the brace only to bath, eat and if you are sitting in a recliner. 5. Please walk as much as you can for exercise. Gradually increase the distance that you walk as your endurance increases. SPECIAL CARE INSTRUCTIONS: VERY IMPORTANT TO READ AND REVIEW A. Do not take any anti-inflammatory medications (i.e. Indocin, Advil, Aspirin, Naprosyn, Aleve, Motrin, etc.) as these may inhibit the chance of a solid fusion. Tylenol is okay to take. B. Your surgical incision has been closed with a cosmetic suture under the skin that will dissolve in about 6 weeks. In 14 days, you can use a pair of clean scissors and cut the suture that is left outside of the skin at the ends of your incision. C. Complications are uncommon, but please contact us if you have any signs or symptoms of: 1. wound infection (fever higher than 102.5 degrees F, redness, separation of wound, drainage, or increasing pain from the incision) 2. blood clots in legs (pain, swelling, redness and warmth in legs) 3. urinary tract infection (fever higher than 102.5 degrees, burning upon urination or increased frequency of urination) 4. nerve problems (inability to walk on your toes or heels, numbness, loss of bowel or bladder control) 5. any other symptoms that concern you. D. Please call the office at if you have any concerns or questions about your operation or recovery. MANAGING PAIN AFTER SPINAL SURGERY 1. Narcotic medication is intended for short-term use and will be provided for surgical pain. Surgical pain usually lasts for a period of 4-6 weeks. Narcotic medication includes Percocet, Vicodin, Darvocet, Tylenol #3 or Lortab. 2. Longer-term pain is more appropriately treated with non-narcotic medication such as Tylenol ES. 3. Muscle spasm is not appropriately treated with narcotics. Muscle relaxers such as Soma, Flexeril or Skelaxin can be used along with Tylenol ES. 4. Remember that we all live with some "aches and pains". This is not unusual or uncommon after an injury or as we get older. 5. We will provide appropriate medication within the normal guidelines of their prescribed use. We will also be very cautious and aware of potential abuse and extended duration of patients' medication needs. 6. Please allow 2-3 days to process refills. Prescriptions will not be mailed but must be picked up at the office. FOLLOW UP VISIT: Keep your scheduled follow-up appointment. Any questions, please call the office at . Current Hospital Diet Patient's current hospital diet: Clear Liquid Diet Discharge Diet Recommended Diet: Regular Diet Procedures Procedures Performed: 1. Anterior cervical discectomy bilateral foraminotomies C3-4 C4-5. #2 anterior cervical arthrodesis C3-4 C4-5. #3 placement of cortical allograft filled with DBM 7 mm in height at C3-4 and 8 mm at C4-5. #4 application of mckinney plate and screws C3C5. Pending Studies Studies pending at discharge: no Medical Emergencies . Who to Call and When: Medical Emergencies: If at any time you feel your situation is an emergency, please call 911 immediately. . Non-Emergent Contact Non-Emergency issues call your: Primary Care Provider . "Provider Documentation" section prepared by Issa Alanis. .
[2017-07-05] MEDS: CHECK SCOPOLAMINE PATCH PLACEMENT SCH ×2 (15:53→23:38)
[2017-07-05] MEDS: CEFAZOLIN IV 2,000 MG in SYRINGE 0 ML IV SCH ×2 (16:05→23:38)
[2017-07-05] MEDS: OXYCODONE HCL IR 5 MG TAB (IMMEDIATE RELEASE) PO PRN ×2 (17:41→21:39)
[2017-07-05] MEDS ORDERED: MONTELUKAST SOD 10 MG TAB PO SCH (21:00)
[2017-07-05] MEDS ORDERED: RISPERIDONE 1 MG TAB PO SCH (21:00)
[2017-07-05] MEDS: DOCUSATE SODIUM 100 MG CAP PO SCH (21:34)
[2017-07-05] MEDS: FLUTICASONE PROPIONATE NA SPR 16 GM BTL SCH (21:34)
[2017-07-05] MEDS: PROPRANOLOL HCL 20 MG TAB PO SCH (21:35)
[2017-07-05] MEDS: TOPIRAMATE 100 MG TAB PO SCH (21:35)
[2017-07-05] MEDS: RANITIDINE HCL 150 MG TAB PO SCH (21:35)
[2017-07-06] VITALS (9 sets, daily range): BP systolic 92–114; BP diastolic 61–80; PULSE 58–70; TEMP 36.4–36.5; O2SAT 97–100
[2017-07-06] MEDS: OXYCODONE HCL IR 5 MG TAB (IMMEDIATE RELEASE) PO PRN (03:49)
[2017-07-06] MEDS: CHECK SCOPOLAMINE PATCH PLACEMENT SCH (08:00)
[2017-07-06] MEDS: CEFAZOLIN IV 2,000 MG in SYRINGE 0 ML IV SCH (08:32)
[2017-07-06] MEDS: PROPRANOLOL HCL 20 MG TAB PO SCH (08:33)
[2017-07-06] MEDS: TOPIRAMATE 100 MG TAB PO SCH (08:33)
[2017-07-06] MEDS: FLUTICASONE PROPIONATE NA SPR 16 GM BTL SCH (08:33)
[2017-07-06] MEDS: DOCUSATE SODIUM 100 MG CAP PO SCH (08:33)
[2017-07-06] MEDS: RANITIDINE HCL 150 MG TAB PO SCH (08:34)
[2017-07-06] MEDS: TAPENTADOL HCL 50 MG TAB PO SCH ×2 (08:35→09:33)
[2017-07-06] MEDS ORDERED: BuPROPion SR 150 MG TABCR PO SCH (09:00)
--- NOTE | 2017-07-06 16:01 | Discharge Summary ---
Orthopedic Discharge Summary Admission Date/Reason Jul 05, 2017 at 07:30 Cervical Spinal Stenosis. Discharge Date/Disposition Jul 06, 2017 Home Diagnosis Principal Diagnosis: Cervical spinal stenosis Admission Physical Exam As per Admitting History & Physical. Hospital Course Patient underwent anterior cervical discectomy and fusion tolerated as well as taken to the orthopedic floor postoperatively. Postop day #1 she was swallowing well no hoarseness arm symptoms improved. ANDREW drain decreased appropriately. Subsequently patient was discharged home. Discharge orders and instructions found in the chart for further review. Discharge Instructions Please refer to the electronic Patient Visit Report (Discharge Instructions) for additional information.
[2017-07-07] MEDS ORDERED: BISACODYL 10 MG SUPP PR PRN (06:00)
[2017-07-07] MEDS ORDERED: BISACODYL 5 MG TABEC PO PRN (06:00)
[2017-07-08] MEDS ORDERED: POLYETHYLENE (MIRALAX) 17 GM PACK PO SCH (09:00)
== END 2017-07-06 11:26 | disposition home or self-care (01) | DRG 473 ==
LOC: C.ACU 05:41 → C.3E 07:30 → ENRESERV 10:08
PROVIDERS: ADMIT Orthopaedic Surgery Orthopaedic Surgery of the Spine; ATTEND Orthopaedic Surgery Orthopaedic Surgery of the Spine
PROC: 0RT30ZZ Resection of Cervical Vertebral Disc, Open Approach (ICD-10-PCS; principal; 2017-07-05 07:45)
PROC: 0RG20K0 Fusion of 2 or more Cervical Vertebral Joints with Nonautologous Tissue Substitute, Anterior Approach, Anterior Column, Open Approach (ICD-10-PCS; principal; 2017-07-05 07:45)
DX: M48.02 Spinal stenosis, cervical region (principal); I51.9 Heart disease, unspecified; Z79.899 Other long term (current) drug therapy; Z98.1 Arthrodesis status; Z88.8 Allergy status to other drugs, medicaments and biological substances; Z91.048 Other nonmedicinal substance allergy status